=== PATIENT | female | born 1960 | race Caucasian/White ===

== ENCOUNTER → 2024-02-03 09:47 | Outpatient (REF) | payer OTHER, SELFPAY | LOC: RAD 09:47 | PROVIDERS: ATTENDING PHYSICIAN Family Medicine | DX: R22.41 Localized swelling, mass and lump, right lower limb (principal) | CPT/HCPCS: 93971 ==

== ENCOUNTER → 2024-03-30 19:46 | Outpatient (REF) | payer OTHER, SELFPAY | LOC: MRI 3T 19:46 | PROVIDERS: ATTENDING PHYSICIAN Family Medicine; REFERRING PHYSICIAN Anesthesiology Pain Medicine | DX: M54.50 Low back pain, unspecified (principal) | CPT/HCPCS: 72148 ==